=== PATIENT | male | born 1975 | race Caucasian/White ===

== ENCOUNTER 2023-02-13 13:09 | Emergency (ER) | payer BC ==
[2023-02-13 13:22] VITALS: RESP 18; TEMP 98.5
[2023-02-13 13:53] LABS: Basophils % (A) 0 %; Eosinophils % (A) 0 %; HCT 47.9 % (39.0-53.0); HGB 15.4 gm/dL (13.0-17.5); Lymphocytes # (A) 1.5 k/uL (1.0-4.8); Lymphocytes % (A) 16 %; MCHC 32.1 g/dL (31.0-37.0); MCV 90.3 fL (80.0-100.0); Mean Platelet Volume 7.6; Monocytes # (A) 0.6 k/uL (0-1.0); Monocytes % (A) 6 %; Neutrophils # (A) 7.4 k/uL (1.3-7.7); Neutrophils % (A) 76 %; Platelet Count 228 k/uL (150-450); RDW 13.3 % (11.5-15.5); WBC 9.8 k/uL (3.8-10.6)
[2023-02-13 14:06] LABS: ALT 283 U/L (4-49); AST 190 U/L (17-59); African American GFR (CKD) >90 (>60 ml/min/1.73 sqM); Albumin 4.5 g/dL (3.5-5.0); Alkaline Phosphatase 115 U/L (38-126); Anion Gap 10 mmol/L; Blood Urea Nitrogen 20 mg/dL (9-20); Calcium 9.5 mg/dL (8.4-10.2); Carbon Dioxide 27 mmol/L (22-30); Chloride 101 mmol/L (98-107); Glucose 103 mg/dL (74-99); Magnesium 2.1 mg/dL (1.6-2.3); Non-African American GFR(CKD) 89 (>60 ml/min/1.73 sqM); Potassium 4.7 mmol/L (3.5-5.1); Sodium 138 mmol/L (137-145); Total Protein 7.6 g/dL (6.3-8.2)
[2023-02-13 14:08] LABS: INR 0.9 (<1.2); Partial Thromboplastin Time 24.1 sec (22.0-30.0); Prothrombin Time 9.7 sec (9.0-12.0)
--- NOTE | 2023-02-13 14:29 | ED ---
Chest Pain HPI - General Source: patient, RN notes reviewed Mode of arrival: ambulatory Limitations: no limitations <Ofelia Nieto - Last Filed: 02/13/23 14:18> <Wicho Henriquez - Last Filed: 02/13/23 16:56> - General Chief Complaint: Chest Pain Stated Complaint: hx of heart valve replacement lt chest pain Time Seen by Provider: 02/13/23 14:18 - History of Present Illness Initial Comments: Patient is a 47-year-old male presenting to the emergency room with complaints of chest pain located in the left upper chest wall which is worse with inspiration but the chest wall is not tender. He reports occasional pulsating shooting pain as well. He is concerned regarding his symptoms number of last year he underwent a an aortic valve replacement due to a bicuspid aorta with agitation and required pacemaker insertion. He denies any other associated symptoms including any shortness of breath, abdominal pain, nausea, vomiting, diaphoresis, headache, dizziness, fevers or chills. (Ofelia Nieto) Dictation was produced using Jusp dictation software. please excuse any g rammatical, word or spelling errors. Chief Complaint: 47-year-old male past medical history of aortic valve replacement presents to the ER for chest pain History of Present Illness: 39-year-old male who presents emergency department for chest pain. States he stated his pain has been ongoing for the last couple days. Patient states that it feels like a dull sharp ache to his left anterior chest. He states his symptoms are much more noticeable when inspiring deeply. Patient has a history of aortic valve replacement and pacemaker. Patient has any fever. No cough. No associated diaphoresis or nausea. The ROS documented in this emergency department record has been reviewed and confirmed by me. Those systems with pertinent positive or negative responses have been documented in the HPI. All other systems are other negative and/or noncontributory. (Wicho Henriquez) - Related Data Allergies Allergy/AdvReac Type Severity Reaction Status Date / Time No Known Allergies Allergy Verified 02/13/23 16:54 Review of Systems ROS Other: All systems not noted in ROS Statement are negative. <Ofelia Nieto - Last Filed: 02/13/23 14:18> ROS Other: All systems not noted in ROS Statement are negative. <Wicho Henriquez - Last Filed: 02/13/23 16:56> ROS Statement: Those systems with pertinent positive or pertinent negative responses have been documented in the HPI. Past Medical History Past Medical History: Asthma, CVA/TIA Additional Past Medical History / Comment(s): blind left eye, History of Any Multi-Drug Resistant Organisms: None Reported Past Surgical History: Pacemaker Additional Past Surgical History / Comment(s): Aortic valve replacement, Past Psychological History: Unable to Obtain Smoking Status: Never smoker Past Alcohol Use History: Occasional Past Drug Use History: None Reported <Ofelia Nieto - Last Filed: 02/13/23 14:18> General Exam Limitations: no limitations <Ofelia Nieto - Last Filed: 02/13/23 14:18> <Wicho Henriquez - Last Filed: 02/13/23 16:56> - General Exam Comments Initial Comments: Visual Physical Exam Vital signs reviewed General: Well-appearing, nontoxic, no acute distress. Head: Normocephalic, atraumatic Eyes: PERRLA, EOMI ENT: Airway patent Chest: Nonlabored breathing Skin: No visual rash, normal skin tone Neuro: Alert and oriented 3 Musculoskeletal: No gross abnormalities (Ofelia Nieto) PHYSICAL EXAM: General Impression: Alert and oriented x3, not in acute distress HEENT: Normocephalic atraumatic, extra-ocular movements intact, pupils equal and reactive to light bilaterally, mucous membranes moist. 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 182, QRS 138, QTc 47. No WA prolongation, no QTC prolongation, no ST or T-wave changes noted. No EKG for comparison. EKG shows left bundle branch block. No signs of ischemia or infarction Was pt. sent in by a medical professional or institution (, PA, LANDSCAPE GARDENER, urgent care, hospital, or skilled nursing...) When possible be specific @ -No Did you speak to anyone other than the patient for history (EMS, parent, family, police, friend...)? What history was obtained from this source @ - at the bedside states the patient has chest pain Did you review nursing and triage notes (agree or disagree)? Why? @ -I reviewed and agree with nursing and triage notes Were old charts reviewed (outside hosp., previous admission, EMS record, old EKG, old radiological studies, urgent care reports/EKG's, skilled nursing records)? Report findings @ -No old charts were reviewed Differential Diagnosis (chest pain, altered mental status, abdominal pain women, abdominal pain men, vaginal bleeding, musculoskeletal, weakness, fever, dyspnea, syncope, headache, dizziness, GI bleed, back pain, seizure, CVA, palpatations, mental health)? @ -DDifferential Chest Pain: Stable Angina, Unstable Angina, STEMI, NSTEMI Aortic Dissection, Pneumothorax, Musculoskeletal, Esophageal Spasm GERD, Cholecystitis, Pancreatitis, Zoster, this is not meant to be an all-inclusive list. EKG interpreted by me (3pts min.). @ -See above X-rays interpreted by me (1pt min.). @ -non acute chest x-ray CT interpreted by me (1pt min.). @ -None done U/S interpreted by me (1pt. min.). @ -None done What testing was considered but not performed or refused? (CT, X-rays, U/S, labs)? Why? @ -None What meds were considered but not given or refused? Why? @ -None Did you discuss the management of the patient with other professionals (professionals i.e. , PA, LANDSCAPE GARDENER, lab, RT, psych nurse, medical social consultant, drafter chief design, teacher, credit officer, senior case manager)? Give summary @ -No Was smoking cessation discussed for >3mins.? @ -No Was critical care preformed (if so, how long)? @ -No Were there social determinants of health that impacted care today? How? (Homelessness, low income, unemployed, alcoholism, drug addiction, transportation, low edu. Level, literacy, decrease access to med. care, assisted, rehab)? @ -No Was there de-escalation of care discussed even if they declined (Discuss DNR or withdrawal of care, Hospice)? DNR status @ -No What co-morbidities impacted this encounter? (DM, HTN, Smoking, COPD, CAD, Cancer, CVA, ARF, Chemo, Hep., AIDS, mental health diagnosis, sleep apnea, morbid obesity)? @ -None Was patient admitted / discharged? Hospital course, mention meds given and route, prescriptions, significant lab abnormalities, going to OR and other pertinent info. @ -47 y Old male presents emergency department for atypical chest pain. Vital signs upon arrival are within acceptable limits. Patient is well-appearing denies any shortness of breath. Vital signs are stable. Lab investigation is unremarkable. Patient observed in the emergency department for several hours. Patient's pain is very atypical for ACS. He is well-appearing and is agreeable with discharge follow-up with primary care doctor. Undiagnosed new problem with uncertain prognosis? @ -No Drug Therapy requiring intensive monitoring for toxicity (Heparin, Nitro, Insulin, Cardizem)? @ -No Were any procedures done? @ -No Diagnosis/symptom? Acute, or Chronic, or Acute on Chronic? Uncomplicated (without systemic symptoms) or Complicated (systemic symptoms)? @ -1. Chest pain, no high-risk features Side effects of treatment? @ -No Exacerbation, Progression, or Severe Exacerbation? @ -No Poses a threat to life or bodily function? How? (Chest pain, [place], [place], pneumonia, PE, COPD, DKA, ARF, appy, cholecystitis, CVA, Diverticulitis, Homicidal, Suicidal, threat to staff... and all critical care pts) @ -No (Wicho Henriquez) Disposition <Ofelia Nieto - Last Filed: 02/13/23 14:18> Is patient prescribed a controlled substance at d/c from ED?: No Time of Disposition: 16:54 <Wicho Henriquez - Last Filed: 02/13/23 16:56> Clinical Impression: Pleurisy Disposition: HOME SELF-CARE Condition: Good Instructions (If sedation given, give patient instructions): Chest Pain (ED) Referrals: Yamil Grullon DO [Primary Care Provider] - 1-2 days
--- NOTE | 2023-02-13 14:44 | XR ---
EXAMINATION TYPE: XR chest 2V DATE OF EXAM: 02/13/2023 COMPARISON: None HISTORY: 47-year-old male with chest pain TECHNIQUE: PA and lateral views FINDINGS: Median sternotomy wires and prosthetic aortic valve. A loop recorder device is noted. Heart upper asher its of normal in size. Some strandy atelectasis at the left base. Aorta and pulmonary vasculature wit hin normal limits. No consolidation or pleural effusion. IMPRESSION: Borderline heart size. Status post aortic valve replacement. Strandy atelectasis left base. No acute process seen.
[2023-02-13 15:37] VITALS: PULSE 101
[2023-02-13 17:10] VITALS: BP 108/73
== END 2023-02-13 17:10 | disposition home or self-care (01) ==
LOC: EC 13:09
DX: R09.1 Pleurisy (principal); J45.909 Unspecified asthma, uncomplicated
CPT/HCPCS: 36415; 71046; 80053; 83605; 83735; 84484; 85025; 85610; 85730; 93005; 99285